=== PATIENT | female | born 1995 | race African-American/Black ===

== ENCOUNTER 2018-02-18 13:52 | Emergency (ER) | payer MEDICAID ==
[~2018-02-18] VITALS: Ht 160 cm; Wt 50.0 kg
[2018-02-18] MEDS ORDERED: SODIUM CHLORIDE 0.9% 1,000 ML IV ONE (16:00)
[2018-02-18] MEDS ORDERED: ONDANSETRON HCL 4MG/2ML INJ IV ONE (16:00)
[2018-02-18] MEDS ORDERED: ACETAMINOPHEN 325MG TABLET PO PRN (16:00)
[2018-02-18 17:14] LABS: BASOPHILS % 0.4 % (0.0-2.0); EOSINOPHILS % 0.4 % (0.0-5.0); HEMATOCRIT. 39.3 % (36.0-48.0); HEMOGLOBIN. 13.5 g/dL (12.0-16.0); LYMPHOCYTES % 14.5 % (20.0-50.0); MEAN CORPUSCULAR HEMOGLOBIN 33.4 pg (28.0-32.0); MEAN CORPUSCULAR VOLUME 97.1 fL (81.0-99.0); MEAN PLATELET VOLUME 11.5 fl (7.4-10.4); MONOCYTES % 5.7 % (2.0-8.0); PLATELET 146 x1000/uL (130-400); RED BLOOD CELL COUNT 4.04 mill/uL (4.2-5.4); RED CELL DISTRIBUTION WIDTH 13.7 % (11.6-14.6)
[2018-02-18 17:17] LABS: CHLORIDE 101 mEq/L (98-107)
[2018-02-18 17:40] LABS: B-HCG QUANTITATIVE 134454 mIU/mL (<3)
[2018-02-18 18:12] LABS: CLARITY URINE CLOUDY (CLEAR); COLOR URINE DARK YELLOW (YELLOW); KETONES URINE 2+ (NEGATIVE); LEUKOCYTE ESTERASE URINE TRACE (NEGATIVE); NITRITE URINE NEGATIVE (NEGATIVE); OCCULT BLOOD URINE NEGATIVE (NEGATIVE); PH URINE 6.5 (4.5-8.0); PROTEIN URINE 1+ (NEGATIVE); SPECIFIC GRAVITY URINE 1.031 (1.005-1.030)
[2018-02-18 20:07] VITALS: BP 100/59
== END 2018-02-18 21:26 | disposition home or self-care (01) ==
LOC: ER 13:52
DX: O21.0 Mild hyperemesis gravidarum (principal); Z3A.09 9 weeks gestation of pregnancy; R10.84 Generalized abdominal pain
CPT/HCPCS: 36415; 76801; 80053; 81003; 83690; 84702; 85025; 86850; 86900; 86901; 96361; 96374; 99284; J2405; J7030